=== PATIENT | female | born 2000 | race African-American/Black ===

== ENCOUNTER 2020-01-06 13:46 | Outpatient (CLI) | payer OTHER ==
--- NOTE | 2020-01-06 15:00 | ULT ---
OB ULTRASOUND: 01/06/20 HISTORY: anatomy with size and dates. FINDINGS: 22 and 2 day gestation by ultrasound with a single viable intrauterine . BIOMETRY: BPD: 22 week, 3 day. HC: 22 week, 2 day. AC: 21 week, 5 day. FL: 22 week, 2 day. EFW: 467 grams, 22 week, 0 day. Placenta: Anterior. Amniotic fluid: Adequate. FRANCINE: 8.72 cm. Cervical length: 3.0 cm. heart rate: 140 beats per minute. Position: Vertex. Anatomy: Ventricles are slightly asymmetric probably due to positioning. Right lateral ventricle measure s 0.73 and left lateral ventricle measures 0.89. All other anatomy appears unremarkable including int racranial contents, spine, bladder, cord insertion, kidneys, stomach, four chamber heart, three vesse l cord and extremities. Facial profile was unable to be obtained due to positioning. IMPRESSION: 22 week, 2 day gestational age by ultrasound. Lateral ventricles upper normal but this may be due to positioning. Recommend re-evaluation with follow-up ultrasound exam. anatomy otherwise unremar kable. POS: AGW
== END 2020-01-06 13:47 | disposition home or self-care (01) ==
LOC: BICULT 13:46
PROVIDERS: ATTEND Family Medicine
DX: Z34.02 Encounter for supervision of normal first pregnancy, second trimester (principal); Z3A.22 22 weeks gestation of pregnancy
CPT/HCPCS: 76805